=== PATIENT | female | born 1985 | race American Indian/Alaskan Native ===

== ENCOUNTER 2017-08-10 15:47 | Inpatient (IN) | payer MEDICAID ==
[~2017-08-10] VITALS: Ht 165.1 cm; Wt 66.0 kg
[2017-08-10] MEDS ORDERED: vancomycin/NS 1 GM ADD-VANTAGE 250 ML IV ONE (17:50)
[2017-08-10] MEDS ORDERED: piperacillin/tazo 3.375gm/50ml 50 ML IV ONE (17:50)
[2017-08-10] MEDS ORDERED: normal saline 1000ML IV soln IV ONE (17:50)
[2017-08-10] MEDS ORDERED: bacitracin 15gm ointment TP ONE (17:50)
[2017-08-10] MEDS ORDERED: TETanus/Pertussis (Acell)/Diphther VAC/PF (Tdap-Adult) 0.5ml syringe IM ONE (17:50)
[2017-08-10] MEDS ORDERED: proCHLORperazine 10 MG/2 ml inj IV ONE (18:10)
[2017-08-10] MEDS ORDERED: MORPHINE 2MG in 2ml NS syringe IV PRN (18:10)
[2017-08-10 18:30] LABS: BASOPHILS % (AUTO) 0.1 % (0-1); EOSINOPHILS # (AUTO) 0.4 X10'3 (0-0.9); EOSINOPHILS % (AUTO) 2.1 % (0-6); HEMATOCRIT 29.1 % (35.0-45.0); HEMOGLOBIN 9.9 g/dl (12.0-16.0); LYMPHOCYTES # (AUTO) 1.4 X10'3 (1.1-4.8); LYMPHOCYTES % (AUTO) 7.6 % (21-51); MEAN CORPUSCULAR HEMOGLOBIN 28.8 PG (27.0-31.0); MEAN CORPUSCULAR VOLUME 84.7 FL (78-98); MONOCYTES # (AUTO) 1.1 X10'3 (0-0.9); MONOCYTES % (AUTO) 6.4 % (2-12); NEUTROPHILS % (AUTO) 83.8 % (42-75); PLATELET COUNT 338 X10'3 (140-440); RED BLOOD COUNT 3.43 X10'6 (4.20-5.60); RED CELL DISTRIBUTION WIDTH 16.3 % (11.5-14.5); WHITE BLOOD COUNT 17.9 X10'3 (4.5-11.0)
[2017-08-10 18:40] LABS: PARTIAL THROMBOPLASTIN TIME 31 SECONDS (22-32); PROTHROMBIN TIME 10.3 SECONDS (9.0-12.0)
[2017-08-10 18:48] LABS: ALANINE AMINOTRANSFERASE 65 U/L (12-78); ALBUMIN 2.5 G/DL (3.4-5.0); ALBUMIN/GLOBULIN RATIO 0.5 (1.1-1.5); ALKALINE PHOSPHATASE 110 IU/L (46-116); ANION GAP 10 (8-16); ASPARTATE AMINO TRANSFERASE 48 U/L (10-37); BILIRUBIN,TOTAL 0.3 MG/DL (0.1-1.0); BLOOD UREA NITROGEN 11 MG/DL (7-18); BUN/CREATININE RATIO 12.8 (6.6-38.0); CALCIUM 8.7 MG/DL (8.5-10.1); CHLORIDE 100 MMOL/L (99-107); CREATININE 0.86 MG/DL (0.40-0.90); GLUCOSE 102 MG/DL (70-104); MAGNESIUM 2.3 MG/DL (1.5-2.4); POTASSIUM 3.7 MMOL/L (3.5-5.1); SODIUM 136 MMOL/L (135-145); TOTAL CARBON DIOXIDE 25.7 MMOL/L (24-32); TOTAL PROTEIN 7.4 G/DL (6.4-8.2); eGFR 77 ML/MIN
[2017-08-10] MEDS ORDERED: diphenhydrAMINE 25mg capsule PO PRN (19:40)
[2017-08-10] MEDS ORDERED: ondansetron/PF 4mg/2ml inj IV PRN (19:40)
[2017-08-10] MEDS ORDERED: HYDROmorphone inj. 0.5 MG/0.5 ML DISP.SYRIN IV PRN ×2 (19:40)
[2017-08-10] MEDS ORDERED: morphine 4 MG/ML inj SYRINge IV PRN ×2 (19:40)
[2017-08-10] MEDS ORDERED: acetaminophen 325mg tablet PO PRN ×2 (19:40)
[2017-08-10] MEDS ORDERED: metoclopramide 5 mg/ml inj IV PRN (19:40)
[2017-08-10] MEDS ORDERED: mag hydrox/Alum hydrox/simeth 30ml oral suspension PO PRN (19:40)
[2017-08-10] MEDS ORDERED: magnesium hydroxide 30ml (MOM) UD suspension PO PRN (19:40)
[2017-08-10] MEDS ORDERED: diphenhydrAMINE 50 mg/ml inj IV PRN (19:40)
[2017-08-10] MEDS ORDERED: acetaminophen 650mg rectal suppository RC PRN (19:40)
[2017-08-10 20:22] LABS: CREATINE KINASE 82 U/L (26-192); PHOSPHORUS 3.5 MG/DL (2.3-4.5)
[2017-08-10] MEDS: potassium Cl 20mEq in NS 1,000 ML IV SCH (20:34)
[2017-08-10] MEDS: docusate sod 100mg capsule PO SCH (20:34)
[2017-08-10] MEDS ORDERED: temazepam 15mg capsule PO PRN (21:00)
[2017-08-10 21:50] VITALS: BP 103/46
[2017-08-10 22:22] LABS: COLOR,URINE Yellow (Yellow); GLUCOSE, URINE Negative (Neg); KETONES,URINE Negative (Neg); LEUKOCYTE ESTERASE ,URINE Small (Neg); NITRITES, URINE Negative (Neg); OCCULT BLOOD,URINE Negative (Neg); PH,URINE 5.5 (4.8-8.0); PROTEIN,URINE 30 mg/dl (Neg)
[2017-08-10 22:23] LABS: URINE HCG NEGATIVE (NEG)
[2017-08-10 22:34] LABS: URINE AMPHETAMINE SCREEN POSITIVE (Neg); URINE BARBITUATE SCREEN NEGATIVE (Neg); URINE BENZODIAZEPINES SCREEN NEGATIVE (Neg); URINE CANNABINOID SCREEN NEGATIVE (Neg); URINE COCAINE SCREEN NEGATIVE (Neg); URINE METHADONE SCREEN NEGATIVE (Neg); URINE OPIATE SCREEN POSITIVE (Neg); URINE PHENCYCLIDINE SCREEN NEGATIVE (Neg)
[2017-08-10 22:36] LABS: UA COLLECTION TYPE VOIDED
[2017-08-10 22:37] LABS: BACTERIA,URINE FEW /HPF (Neg); CLARITY,URINE SLIGHTLY CLOUDY (Clear); RBC,URINE NONE SEEN /HPF (0-2); SQUAMOUS EPITHELIAL CELL,UR FEW /LPF (FEW)
[2017-08-10] MEDS ORDERED: NO HOME MEDS (23:24)
[2017-08-11] MEDS: piperacillin/tazo 4.5gm/100ml 100 ML IV SCH ×3 (00:14→15:31)
[2017-08-11] MEDS: vancomycin/NS 1 GM ADD-VANTAGE 250 ML IV SCH ×2 (03:44→17:17)
[2017-08-11] MEDS: HYDROcodone/acetaminophen 5mg/325mg tablet PO PRN (05:01)
[2017-08-11 06:00] VITALS: BP 109/53
[2017-08-11 06:08] LABS: BASOPHILS % (AUTO) 0 % (0-1); EOSINOPHILS # (AUTO) 0.2 X10'3 (0-0.9); EOSINOPHILS % (AUTO) 1.3 % (0-6); HEMATOCRIT 24.1 % (35.0-45.0); HEMOGLOBIN 8.1 g/dl (12.0-16.0); LYMPHOCYTES # (AUTO) 1.2 X10'3 (1.1-4.8); LYMPHOCYTES % (AUTO) 8.7 % (21-51); MEAN CORPUSCULAR HEMOGLOBIN 28.6 PG (27.0-31.0); MEAN CORPUSCULAR HGB CONC 33.5 % (33.0-36.5); MEAN CORPUSCULAR VOLUME 85.3 FL (78-98); MEAN PLATELET VOLUME 8.4 FL (7.4-10.4); MONOCYTES # (AUTO) 0.9 X10'3 (0-0.9); MONOCYTES % (AUTO) 6.6 % (2-12); NEUTROPHILS # (AUTO) 11.6 X10'3 (1.8-7.7); NEUTROPHILS % (AUTO) 83.4 % (42-75); PLATELET COUNT 304 X10'3 (140-440); RED BLOOD COUNT 2.83 X10'6 (4.20-5.60); WHITE BLOOD COUNT 13.9 X10'3 (4.5-11.0)
[2017-08-11 06:24] LABS: ALANINE AMINOTRANSFERASE 76 U/L (12-78); ALBUMIN 1.9 G/DL (3.4-5.0); ALBUMIN/GLOBULIN RATIO 0.4 (1.1-1.5); ALKALINE PHOSPHATASE 224 IU/L (46-116); ANION GAP 9 (8-16); ASPARTATE AMINO TRANSFERASE 65 U/L (10-37); BILIRUBIN,TOTAL 0.7 MG/DL (0.1-1.0); BLOOD UREA NITROGEN 9 MG/DL (7-18); BUN/CREATININE RATIO 10.5 (6.6-38.0); CALCIUM 8.1 MG/DL (8.5-10.1); CHLORIDE 105 MMOL/L (99-107); CREATININE 0.86 MG/DL (0.40-0.90); GLUCOSE 82 MG/DL (70-104); POTASSIUM 3.9 MMOL/L (3.5-5.1); SODIUM 138 MMOL/L (135-145); TOTAL CARBON DIOXIDE 24.2 MMOL/L (24-32); TOTAL PROTEIN 6.2 G/DL (6.4-8.2); eGFR 77 ML/MIN
[2017-08-11] MEDS: potassium Cl 20mEq in NS 1,000 ML IV SCH ×2 (06:54→14:04)
[2017-08-11] MEDS: docusate sod 100mg capsule PO SCH ×2 (07:53→19:33)
[2017-08-11] MEDS: pantoprazole 40mg Tablet.DR PO SCH (07:53)
[2017-08-11 10:00] VITALS: BP 91/50
[2017-08-11] MEDS: HYDROcodone/acetaminophen 10/325mg tab PO PRN ×2 (10:45→19:34)
[2017-08-11 18:18] VITALS: BP 90/34
[2017-08-11] MEDS: lactobacillus rhamnosus 10,000 MMU CELLS/CAPSULE PO SCH (19:33)
[2017-08-11] MEDS: neomycin/bacitracin/polymyxin B/HC top. ointment 15gm TP SCH (19:34)
[2017-08-11 22:33] VITALS: BP 93/57
[2017-08-12] MEDS: vancomycin/NS 1 GM ADD-VANTAGE 250 ML IV SCH ×2 (03:30→16:55)
[2017-08-12] MEDS: potassium Cl 20mEq in NS 1,000 ML IV SCH ×2 (03:30→11:38)
[2017-08-12 05:56] LABS: BASOPHILS % (AUTO) 0.1 % (0-1); EOSINOPHILS # (AUTO) 0.4 X10'3 (0-0.9); EOSINOPHILS % (AUTO) 4.1 % (0-6); HEMATOCRIT 23.8 % (35.0-45.0); HEMOGLOBIN 7.9 g/dl (12.0-16.0); LYMPHOCYTES # (AUTO) 1.5 X10'3 (1.1-4.8); LYMPHOCYTES % (AUTO) 17.2 % (21-51); MEAN CORPUSCULAR HEMOGLOBIN 28.6 PG (27.0-31.0); MEAN CORPUSCULAR HGB CONC 33.4 % (33.0-36.5); MEAN CORPUSCULAR VOLUME 85.6 FL (78-98); MEAN PLATELET VOLUME 8.3 FL (7.4-10.4); MONOCYTES # (AUTO) 0.7 X10'3 (0-0.9); MONOCYTES % (AUTO) 8.1 % (2-12); NEUTROPHILS # (AUTO) 6.1 X10'3 (1.8-7.7); NEUTROPHILS % (AUTO) 70.5 % (42-75); PLATELET COUNT 327 X10'3 (140-440); RED BLOOD COUNT 2.78 X10'6 (4.20-5.60); RED CELL DISTRIBUTION WIDTH 16.2 % (11.5-14.5); WHITE BLOOD COUNT 8.6 X10'3 (4.5-11.0)
[2017-08-12 06:00] VITALS: BP 111/62
[2017-08-12 06:22] LABS: % IRON SATURATION 13 % (11-46); IRON 17 UG/DL (49-151); TOTAL IRON BINDING CAPACITY 132 UG/DL (259-388)
[2017-08-12 06:37] LABS: ALANINE AMINOTRANSFERASE 79 U/L (12-78); ALBUMIN 1.7 G/DL (3.4-5.0); ALBUMIN/GLOBULIN RATIO 0.4 (1.1-1.5); ALKALINE PHOSPHATASE 256 IU/L (46-116); ANION GAP 9 (8-16); ASPARTATE AMINO TRANSFERASE 61 U/L (10-37); BILIRUBIN,TOTAL 0.4 MG/DL (0.1-1.0); BLOOD UREA NITROGEN 18 MG/DL (7-18); CALCIUM 8.3 MG/DL (8.5-10.1); CHLORIDE 106 MMOL/L (99-107); CREATININE 1.06 MG/DL (0.40-0.90); GLUCOSE 91 MG/DL (70-104); POTASSIUM 4.4 MMOL/L (3.5-5.1); SODIUM 140 MMOL/L (135-145); TOTAL CARBON DIOXIDE 25.4 MMOL/L (24-32); TOTAL PROTEIN 6.1 G/DL (6.4-8.2); eGFR 60 ML/MIN
[2017-08-12] MEDS: neomycin/bacitracin/polymyxin B/HC top. ointment 15gm TP SCH ×2 (08:00→19:29)
[2017-08-12] MEDS: piperacillin/tazo 4.5gm/100ml 100 ML IV SCH ×4 (08:40→23:52)
[2017-08-12] MEDS: HYDROcodone/acetaminophen 10/325mg tab PO PRN (08:44)
[2017-08-12] MEDS: pantoprazole 40mg Tablet.DR PO SCH (08:46)
[2017-08-12] MEDS: docusate sod 100mg capsule PO SCH ×2 (08:46→19:29)
[2017-08-12] MEDS: lactobacillus rhamnosus 10,000 MMU CELLS/CAPSULE PO SCH ×2 (08:46→19:29)
[2017-08-12 10:00] VITALS: BP 111/63
[2017-08-12] MEDS ORDERED: nystatin 15 GM powder TP PRN (12:45)
[2017-08-12] MEDS: nicotine 14mg patch - 24hr TD SCH (14:33)
[2017-08-12] MEDS ORDERED: VANCOMYCIN LEVEL IV NR (15:30)
[2017-08-12 18:35] VITALS: BP 115/67
[2017-08-12] MEDS: HYDROcodone/acetaminophen 5mg/325mg tablet PO PRN (21:52)
[2017-08-12 22:31] VITALS: BP 130/62
[2017-08-13] MEDS: vancomycin/NS 1 GM ADD-VANTAGE 250 ML IV SCH (03:31)
[2017-08-13 03:36] LABS: BASOPHILS # (AUTO) 0.2 X10'3 (0-0.2); BASOPHILS % (AUTO) 2.1 % (0-1); EOSINOPHILS # (AUTO) 0.3 X10'3 (0-0.9); HEMOGLOBIN 8.9 g/dl (12.0-16.0); LYMPHOCYTES # (AUTO) 1.8 X10'3 (1.1-4.8); LYMPHOCYTES % (AUTO) 16.8 % (21-51); MEAN CORPUSCULAR HEMOGLOBIN 28.1 PG (27.0-31.0); MEAN CORPUSCULAR HGB CONC 32.8 % (33.0-36.5); MEAN CORPUSCULAR VOLUME 85.6 FL (78-98); MEAN PLATELET VOLUME 8.4 FL (7.4-10.4); MONOCYTES # (AUTO) 0.8 X10'3 (0-0.9); MONOCYTES % (AUTO) 7.4 % (2-12); NEUTROPHILS # (AUTO) 7.4 X10'3 (1.8-7.7); NEUTROPHILS % (AUTO) 70.7 % (42-75); PLATELET COUNT 373 X10'3 (140-440); RED BLOOD COUNT 3.16 X10'6 (4.20-5.60); RED CELL DISTRIBUTION WIDTH 16.4 % (11.5-14.5); WHITE BLOOD COUNT 10.4 X10'3 (4.5-11.0)
[2017-08-13 03:51] LABS: ALANINE AMINOTRANSFERASE 65 U/L (12-78); ALBUMIN 1.8 G/DL (3.4-5.0); ALBUMIN/GLOBULIN RATIO 0.4 (1.1-1.5); ALKALINE PHOSPHATASE 251 IU/L (46-116); ANION GAP 8 (8-16); ASPARTATE AMINO TRANSFERASE 33 U/L (10-37); BILIRUBIN,TOTAL 0.2 MG/DL (0.1-1.0); BLOOD UREA NITROGEN 10 MG/DL (7-18); BUN/CREATININE RATIO 10.3 (6.6-38.0); CALCIUM 8.5 MG/DL (8.5-10.1); CHLORIDE 104 MMOL/L (99-107); CREATININE 0.97 MG/DL (0.40-0.90); GLUCOSE 121 MG/DL (70-104); POTASSIUM 3.9 MMOL/L (3.5-5.1); SODIUM 142 MMOL/L (135-145); TOTAL CARBON DIOXIDE 30.4 MMOL/L (24-32); TOTAL PROTEIN 6.3 G/DL (6.4-8.2); eGFR 67 ML/MIN
[2017-08-13 07:11] VITALS: BP 132/72
[2017-08-13] MEDS: docusate sod 100mg capsule PO SCH (07:30)
[2017-08-13] MEDS: pantoprazole 40mg Tablet.DR PO SCH (07:30)
[2017-08-13] MEDS: lactobacillus rhamnosus 10,000 MMU CELLS/CAPSULE PO SCH (07:30)
[2017-08-13 07:33] LABS: HIV ANTIBODY 1&2 RAPID NON-REACTIVE (Neg)
[2017-08-13] MEDS: nicotine 14mg patch - 24hr TD SCH (07:34)
[2017-08-13] MEDS: piperacillin/tazo 4.5gm/100ml 100 ML IV SCH (07:35)
[2017-08-13] MEDS ORDERED: neomycin/bacitracin/polymyxin B/HC top. ointment 15gm TP PRN (07:45)
[2017-08-13] MEDS ORDERED: levoFLOXACIN-Levaquin 500mg/D5 100 ML IV SCH (08:00)
[2017-08-13 10:17] VITALS: BP 112/56
[2017-08-13] MEDS ORDERED: LEVO500T89 PO (12:17)
[2017-08-13] MEDS ORDERED: MULT-38 PO (12:17)
[2017-08-13] MEDS ORDERED: IBUP-1986 PO (12:17)
[2017-08-13] MEDS ORDERED: NICO-631 TD (12:17)
[2017-08-13] MEDS ORDERED: vancomycin inj 1,250 MG in normal saline 250ml IV soln 250 ML IV SCH (16:00)
[2017-08-15] MEDS ORDERED: VANCOMYCIN LEVEL IV NR (03:30)
== END 2017-08-13 12:45 | disposition home or self-care (01) | DRG 720 ==
LOC: ER 15:48 → ED HOLD 19:38 → ORTHO 4S 21:53
PROVIDERS: ADMIT Family Medicine; ATTEND Family Medicine
DX: A41.9 Sepsis, unspecified organism (principal); M00.9 Pyogenic arthritis, unspecified; F15.10 Other stimulant abuse, uncomplicated; L02.414 Cutaneous abscess of left upper limb; D64.9 Anemia, unspecified; S59.902A Unspecified injury of left elbow, initial encounter; L03.114 Cellulitis of left upper limb; M72.9 Fibroblastic disorder, unspecified; B95.61 Methicillin susceptible Staphylococcus aureus infection as the cause of diseases classified elsewhere; L08.0 Pyoderma; W18.39XA Other fall on same level, initial encounter; Z59.0 Homelessness; Y93.89 Activity, other specified; Y92.89 Other specified places as the place of occurrence of the external cause; Y99.8 Other external cause status
CPT/HCPCS: 36415; 71045; 73080; 73200; 80053; 80202; 80305; 81001; 81025; 82550; 82607; 82746; 83540; 83550; 83605; 83735; 83880; 84100; 84145; 84443; 85025; 85610; 85730; 86703; 87040; 87070; 87077; 87088; 87186; 90471; 90715; 93005; 96365; 96368; 96375; 99285; A4565; A6196; A6212; A6222; A6223; A6253; A6446; A6449; J0780; J1200; J1956; J2274; J2543; J3370; J7030; Q0163